=== PATIENT | male | born 1960 | race Caucasian/White ===

== ENCOUNTER 2020-12-09 12:47 | Emergency (ER) | payer OTHER, SELFPAY ==
[2020-12-09 12:57] VITALS: BP 142/81; PULSE 71; RESP 16; TEMP 36; O2SAT 99
[2020-12-09 13:03] VITALS: BP 142/81; PULSE 71; RESP 16; TEMP 36; O2SAT 99
--- NOTE | 2020-12-09 13:05 | ED.GENADULT ---
HPI - General Adult General Chief complaint: Eye Problems Stated complaint: eye irritation Source: patient Mode of arrival: ambulatory Limitations: no limitations History of Present Illness HPI narrative: Patient is a 60-year-old male who presents to the urgent care via POV for an evaluation of a right eye problem that began 4 days ago. Right upper eyelid is erythematous and tender. Additionally, he reports no relief with OTC eye ointment . Blinking and touching affected area increases tenderness. Related Data Home Medications Medication Instructions Recorded Confirmed ergocalciferol (vitamin D2) 12/09/20 hydrochlorothiazide 12/09/20 lisinopril 12/09/20 pyridoxine (vitamin B6) 12/09/20 rosuvastatin mg 12/09/20 sertraline mg 12/09/20 Allergies Allergy/AdvReac Type Severity Reaction Status Date / Time No Known Allergies Allergy Unverified 06/04/16 07:30 Review of Systems Review of Systems: Denies injury. Pertinent negatives fever, chills, sweats, malaise, poor p.o. intake, change in appetite, headache, LOC, dizziness, streaking, drainage, numbness, tingling, loss of sensation, foreign body sensation, deformity, sob, chest pain, and heart palpitations/murmurs. [facility] Past Medical History Medical History (Updated 12/09/20 @ 13:13 by ZAYDA Patrick, ) Depression Diabetes Hyperlipidemia Hypertension Exam Narrative: GENERAL: Well-appearing, well-nourished, and in no acute distress. HEAD: Normocephalic, atraumatic. No sinus tenderness or facial swelling appreciated. EYES: Mild swelling and erythema noted to right upper eyelid secondary to stye. Right lower eyelid and left eyelids are normal. PERRLA and EOMI. No evidence of drainage. Periorbital are is without erythema, swelling, pain, and warmth. Bilateral lashes are normal. Bilateral sclera are normal. Conjunctiva are with oral. ENT: Nares clear, no rhinorrhea or epistaxis. Bilateral turbinates without erythema/ swelling. Mucous membranes moist and pink. Uvula is midline without erythema and swelling. No evidence of petechial rash, cobblestoning, lesions, ulcers, erythema, swelling, exudates, peritonsillar abscess, tenting, or drooling. Breath odor and voice normal. NECK: Supple. No Lymphadenopathy or nuchal rigidity appreciated. CHEST: Bilateral lung saunders are clear to auscultation. No respiratory distress. No evidence of cough or pleuritic cp upon examination. HEART: Regular rate and rhythm. No murmur, gallop, or rub heard. EXTREMITIES: Normal range of motion. No edema. SKIN: Warm, dry, no rash. NEURO: No focal deficits. Alert and oriented x3. Course Vital Signs Vital signs: Vital Signs Temperature 96.8 F L 12/09/20 12:57 Pulse Rate 71 12/09/20 12:57 Respiratory Rate 16 12/09/20 12:57 Blood Pressure 142/81 H 12/09/20 12:57 Pulse Oximetry 99 12/09/20 12:57 Temperature 96.8 F L 12/09/20 13:03 Pulse Rate 71 12/09/20 13:03 Respiratory Rate 16 12/09/20 13:03 Blood Pressure 142/81 H 12/09/20 13:03 Pulse Oximetry 99 12/09/20 13:03 Due to an elevated blood pressure, I had a detailed discussion with the patient and/or guardian regarding the need for follow-up with their primary care provider within the next 3-4 days. Patient verbalized understanding and agreed. Medical Decision Making Differential Diagnosis Differential Diagnosis: Contact/allergic dermatitis, atopic dermatitis, psoriasis, cellulitis, tinea infection, parasite infection, shingles Medical Records Medical records reviewed: Yes I reviewed the external patient's medical records. Vital Signs Vital Signs: Vital Signs Temperature 96.8 F L 12/09/20 12:57 Pulse Rate 71 12/09/20 12:57 Respiratory Rate 16 12/09/20 12:57 Blood Pressure 142/81 H 12/09/20 12:57 Pulse Oximetry 99 12/09/20 12:57 Temperature 96.8 F L 12/09/20 13:03 Pulse Rate 71 12/09/20 13:03 Respiratory Rate 16 12/09/20 13:03 Blood Pressure 142/81
== END 2020-12-09 13:17 | disposition home or self-care (01) ==
PROVIDERS: Emergency Provider Nurse Practitioner Family
DX: H00.011 Hordeolum externum right upper eyelid (principal); F32.9 Major depressive disorder, single episode, unspecified; E11.9 Type 2 diabetes mellitus without complications; I10 Essential (primary) hypertension; E78.5 Hyperlipidemia, unspecified
CPT/HCPCS: 99203; G0463

== ENCOUNTER 2020-12-13 12:43 | Emergency (ER) | payer OTHER, SELFPAY ==
[2020-12-13 12:53] VITALS: BP 130/74; PULSE 78; RESP 16; TEMP 36.6; O2SAT 100
--- NOTE | 2020-12-13 13:06 | ED.SKABFB ---
HPI - Skin/Abscess/Foreign Bdy General Chief complaint: Skin/Abscess/Foreign Body Stated complaint: SPOT ON R THIGH Source: patient Mode of arrival: ambulatory Limitations: no limitations History of Present Illness HPI narrative: Patient is a 60-year-old male who presents with rash to groin area. He reports rash x2 to 3 days. Reports attempting to contact primary care physician and was not able to schedule appointment and patient directed to urgent care. He denies drainage. Denies pain at this time. Reports having same in the past and referral to dermatology. He denies using [id number] medications prior to arrival. MD complaint: rash Related Data Home Medications Medication Instructions Recorded Confirmed ergocalciferol (vitamin D2) 12/09/20 hydrochlorothiazide 12/09/20 lisinopril 12/09/20 pyridoxine (vitamin B6) 12/09/20 rosuvastatin mg 12/09/20 sertraline mg 12/09/20 Allergies Allergy/AdvReac Type Severity Reaction Status Date / Time No Known Allergies Allergy Unverified 12/13/20 12:47 Review of Systems Review of Systems: CONSTITUTIONAL: Denies fever, chills, or sweats. EYES: Denies visual changes, redness, or discharge. ENT: Denies rhinorrhea, congestion, sore throat, or otalgia. CARDIOVASCULAR: Denies chest pain, palpitations, or edema. RESPIRATORY: Denies cough or dyspnea. GASTROINTESTINAL: Denies abdominal pain, nausea, vomiting, or diarrhea. GENITOURINARY: Denies dysuria or hematuria. SKIN: Rash to groin and upper thighs MUSCULOSKELETAL: Denies back pain, joint pain, or myalgia. NEUROLOGIC: Denies headache, numbness, dizziness, or weakness. PSYCHIATRIC: Denies anxiety or depression. [facility] Past Medical History Medical History Depression Diabetes Hyperlipidemia Hypertension Social History Social History (Updated 12/13/20 @ 13:07 by ZAYDA Mckeon) Smoking status: Never smoker Alcohol intake: current Alcohol use details: Occasional Substance use: never Comments At the time of signature, I have reviewed and agree with nursing past medical, surgical, social, and family history unless otherwise noted. Please see nursing chart for further information. There is no relevant family history pertinent to the presenting complaint. Exam Narrative: GENERAL: Well-appearing, well-nourished, and in no acute distress. HEAD: Normocephalic, atraumatic. EYES: EOMI. No redness or drainage. Conjunctiva are normal. ENT: Mucous membranes pink and moist. CHEST: No respiratory distress. Clear to auscultation. HEART: Regular rate and rhythm. EXTREMITIES: Normal range of motion. No edema. SKIN: Patient has erythematous areas on the proximal medial thigh bilaterally, approximate 1 cm open wound noted on right thigh without surrounding erythema or edema NEURO: No focal deficits. Alert and oriented x3. Gait steady. PSYCH: Normal affect. No signs of depression or anxiety. Course Vital Signs Vital signs: Vital Signs Temperature 36.6 C 12/13/20 12:53 Pulse Rate 78 12/13/20 12:53 Respiratory Rate 16 12/13/20 12:53 Blood Pressure 130/74 12/13/20 12:53 Pulse Oximetry 100 12/13/20 12:53 Temperature 36.6 C 12/13/20 12:53 Pulse Rate 78 12/13/20 12:53 Respiratory Rate 16 12/13/20 12:53 Blood Pressure 130/74 12/13/20 12:53 Pulse Oximetry 100 12/13/20 12:53 At the time of signature, I have reviewed and agree with nursing past medical, surgical, social, and family history unless otherwise noted. Please see nursing chart for further information. There is no relevant family history pertinent to the presenting complaint. MDM - Skin/Abscess/Foreign Bdy Differential Diagnosis Differential diagnosis: Likely abscess of skin or subcutaneous tissue, viral exanthem, dermatophytosis, urticaria, allergic reaction to drug, cellulitis and other (Tinea cruris) Critical Care Time Critical Care Time Critical
== END 2020-12-13 13:12 | disposition home or self-care (01) ==
PROVIDERS: Emergency Provider Nurse Practitioner
DX: B35.6 Tinea cruris (principal); F32.9 Major depressive disorder, single episode, unspecified; E78.5 Hyperlipidemia, unspecified; I10 Essential (primary) hypertension
CPT/HCPCS: 99213; G0463

== ENCOUNTER 2021-10-18 14:19 | Emergency (ER) | payer BC, SELFPAY ==
[2021-10-18 15:03] VITALS: BP 117/84; PULSE 81; RESP 16; TEMP 37.1; O2SAT 100
--- NOTE | 2021-10-18 15:51 | ED.SKABFB ---
HPI - Skin/Abscess/Foreign Bdy General Chief complaint: Skin/Abscess/Foreign Body Stated complaint: spot on inside of left thigh Time Seen by Provider: 10/18/21 15:51 Source: patient, RN notes reviewed and old records reviewed Mode of arrival: ambulatory Limitations: no limitations History of Present Illness HPI narrative: 60 year old male with complaints of possible abscess to the left inner thigh which did drain some purulent material and blood this morning. Patient reports area has been there for 4 days and now with increasing redness and tenderness over the last 24 hours area measures 6 cm x 8 cm. Patient also has a red rash area in the groin bilaterally states that he has this intermittent yeast rash that he has special cream he uses on that. Patient reports that he has had several abscesses in the past.Patient denies any fevers, chills or sweats. MD complaint: abscess/boil Onset (ago): day(s) (4) Location: LLE (inner thigh) Severity scale (1-10): 2 Related Data Home Medications Medication Instructions Recorded Confirmed ergocalciferol (vitamin D2) 1,250 12/09/20 mcg (50,000 unit) capsule hydrochlorothiazide 12.5 mg capsule 12/09/20 lisinopril 10 mg tablet 12/09/20 pyridoxine (vitamin B6) 100 mg 12/09/20 tablet rosuvastatin 5 mg tablet mg 12/09/20 sertraline 100 mg tablet mg 12/09/20 Allergies Allergy/AdvReac Type Severity Reaction Status Date / Time No Known Allergies Allergy Verified 10/18/21 15:01 Review of Systems Review of Systems: CONSTITUTIONAL: Denies fever, chills, or sweats. EYES: Denies visual changes, redness, or discharge. ENT: Denies rhinorrhea, congestion, sore throat, or otalgia. CARDIOVASCULAR: Denies chest pain, palpitations, or edema. RESPIRATORY: Denies cough or dyspnea. GASTROINTESTINAL: Denies abdominal pain, nausea, vomiting, or diarrhea. GENITOURINARY: Denies dysuria or hematuria. SKIN: Denies rash or itching. Positive for red inflamed tissue to inner left thigh with center scab tender to palpation MUSCULOSKELETAL: Denies back pain, joint pain, or myalgia. NEUROLOGIC: Denies headache, numbness, or weakness. PSYCHIATRIC: Positive history of anxiety or depression. All systems reviewed & are unremarkable except as noted in HPI and below PMFSH Past Medical History Medical History Depression Diabetes Hyperlipidemia Hypertension Surgical History Surgical History (Updated 10/18/21 @ 22:56 by Maryanne Patricia NP) History of bilateral carpal tunnel release Social History Social History (Updated 10/18/21 @ 22:52 by Maryanne Patricia NP) Smoking status: Never smoker Alcohol intake: current Alcohol use details: Occasional Substance use: never Living arrangements: with family Gender identity (if verbalized by the patient): Male Comments At time of signature agree with nursing documentation of past medical surgical, social and family history. there is no relevant family history pertinent to presenting complaint. Exam Narrative: GENERAL: Well-appearing, well-nourished, and in no acute distress. HEAD: Normocephalic, atraumatic. EYES: PERRLA and EOMI. ENT: Nares clear, no rhinorrhea or epistaxis. Mucous membranes moist.TM's normal, throat pink with no lesions or exudates or tonsil swelling NECK: Supple. No lymphadenopathy CHEST: Clear to auscultation. No respiratory distress. SaO2 100% on room air HEART: Regular rate and rhythm. No murmur heard. Normal peripheral pulses. ABDOMEN: Soft, nontender, nondistended, normal active bowel sounds. EXTREMITIES: Normal range of motion. No edema. SKIN: Warm, dry, no rash. 6 cm x 8 cm red inflamed tissue left upper inner thigh with center pustule with scabbing no present drainage, tenderness on palpation, no induration of tissue. NEURO: No focal deficits. Alert and oriented x3. Course Course Level of Care: Express Care Visit Vital Signs Vital signs: Vital
== END 2021-10-18 16:15 | disposition home or self-care (01) ==
PROVIDERS: Emergency Provider Registered Nurse
DX: L02.416 Cutaneous abscess of left lower limb (principal); E11.9 Type 2 diabetes mellitus without complications; E78.5 Hyperlipidemia, unspecified; I10 Essential (primary) hypertension; F32.A Depression, unspecified
CPT/HCPCS: 99213; G0463

== ENCOUNTER 2022-07-06 11:16 | Emergency (ER) | payer BC, SELFPAY ==
[2022-07-06 11:27] VITALS: BP 105/74; PULSE 78; RESP 16; TEMP 36.7; O2SAT 99
[2022-07-06 11:33] VITALS: BP 105/74; PULSE 78; RESP 16; TEMP 36.7; O2SAT 99
--- NOTE | 2022-07-06 11:35 | ED.URI ---
HPI - URI/Sore Throat General Chief Complaint: Upper Respiratory Infection Stated Complaint: sore throat, congestion Source: patient and RN notes reviewed History of Present Illness HPI Narrative: 61 yo M presents to urgent care with complaints of worsening congestion and sore throat. Pt states his upper teeth are hurting now. Pt reports head pressure, ear pain, and slight cough. States he has been using all the OTC meds without relief. Pt states his symptoms became much worse yesterday. Denies any fevers, chills, chest pain, SOB, and vomiting. Related Data Home Medications Medication Instructions Recorded Confirmed ergocalciferol (vitamin D2) 1,250 1,250 mcg PO DAILY 12/09/20 07/06/22 mcg (50,000 unit) capsule hydrochlorothiazide 12.5 mg capsule 12.5 mg PO DAILY 12/09/20 07/06/22 lisinopril 10 mg tablet 10 mg PO DAILY 12/09/20 07/06/22 pyridoxine (vitamin B6) 100 mg 100 mg PO DAILY 12/09/20 07/06/22 tablet rosuvastatin 5 mg tablet 5 mg PO DAILY 12/09/20 07/06/22 sertraline 100 mg tablet 100 mg PO DAILY 12/09/20 07/06/22 Allergies Allergy/AdvReac Type Severity Reaction Status Date / Time No Known Allergies Allergy Verified 07/06/22 11:27 Review of Systems Review of Systems: Pertinent positives and pertinent negatives per HPI. [facility] Past Medical History Medical History (Updated 07/06/22 @ 11:41 by Evangelina Cordoba APRN) Depression Diabetes Hyperlipidemia Hypertension Surgical History Surgical History (Updated 10/18/21 @ 22:56 by Maryanne Patricia NP) History of bilateral carpal tunnel release Social History Social History (Updated 10/18/21 @ 22:52 by Maryanne Patricia NP) Smoking status: Never smoker Alcohol intake: current Alcohol use details: Occasional Substance use: never Living arrangements: with family Gender identity (if verbalized by the patient): Male Comments At the time of my signature, I reviewed and agree with the nursing past medical, surgical, social, and family history. There is no relevant family history pertinent to the patient complaint. Exam Narrative: GENERAL: This is a well-nourished, well-developed patient, in no apparent distress. HEAD: normocephalic, atraumatic. EYES: PERRL. Sclera clear/white. Vision is grossly intact. EARS: External ears normal, auditory canals clear and without drainage, TMs normal without perforation. Hearing grossly intact. NOSE: External nose normal with no obvious nasal discharge, nares without redness, no rhinorrhea. THROAT: Mucous membranes moist, posterior pharynx clear. NECK: Neck supple, non-tender without lymphadenopathy, masses or thyromegaly. CARDIOVASCULAR: Regular rate and rhythm without murmurs, gallops, or rubs. RESPIRATORY: Clear to auscultation. Breath sounds equal bilaterally. No wheezes, rales, or rhonchi. GASTROINTESTINAL: Abdomen soft, non-tender, nondistended. Bowel sounds are active. No hepato-splenomegaly, or palpable masses. No guarding. SKIN: warm, intact with no suspicious lesions or rash, good texture and turgor. NEURO: awake, alert, and oriented to person, place and time. There were no obvious focal neurologic abnormalities. EXTREMITIES: No clubbing, cyanosis, or edema. No joint tenderness, effusion, or edema noted. BACK: Nontender without deformity or crepitance. No flank tenderness. Course Course Level of Care: Express Care Visit Vital Signs Vital signs: Vital Signs Temperature 98.1 F 07/06/22 11:27 Pulse Rate 78 07/06/22 11:27 Respiratory Rate 16 07/06/22 11:27 Blood Pressure 105/74 07/06/22 11:27 Pulse Oximetry 99 07/06/22 11:27 Temperature 98.1 F 07/06/22 11:33 Pulse Rate 78 07/06/22 11:33 Respiratory Rate 16 07/06/22 11:33 Blood Pressure 105/74 07/06/22 11:33 Pulse Oximetry 99 07/06/22 11:33 Reviewed MDM - URI/Sore Throat MDM Narrative Medical decision making narrative: Return to urgent care or go to the ER for new or worsening symptoms.
== END 2022-07-06 11:50 | disposition home or self-care (01) ==
PROVIDERS: Emergency Provider Nurse Practitioner Family
DX: J01.90 Acute sinusitis, unspecified (principal); E11.9 Type 2 diabetes mellitus without complications; E78.5 Hyperlipidemia, unspecified; I10 Essential (primary) hypertension; F32.A Depression, unspecified
CPT/HCPCS: 87081; 87880; 99213; G0463

== ENCOUNTER 2022-11-27 11:07 | Emergency (ER) | payer BC, SELFPAY ==
--- NOTE | 2022-11-27 11:20 | ED.URI ---
HPI - URI/Sore Throat General Chief Complaint: Upper Respiratory Infection Stated Complaint: Sinus infection Time Seen by Provider: 11/27/22 11:25 Source: patient and RN notes reviewed Mode of arrival: ambulatory Limitations: no limitations History of Present Illness HPI Narrative: 8-year-old male presents with concern for 3 day history of sinus pain, postnasal drainage, sneezing, throat irritation. He reports feeling feverish. He denies body aches. Denies cough MD elicited complaint: nasal congestion and sinus pain Related Data Home Medications Medication Instructions Recorded Confirmed ergocalciferol (vitamin D2) 1,250 1,250 mcg PO DAILY 12/09/20 11/27/22 mcg (50,000 unit) capsule hydrochlorothiazide 12.5 mg capsule 12.5 mg PO DAILY 12/09/20 11/27/22 lisinopril 10 mg tablet 10 mg PO DAILY 12/09/20 11/27/22 pyridoxine (vitamin B6) 100 mg 100 mg PO DAILY 12/09/20 11/27/22 tablet rosuvastatin 5 mg tablet 5 mg PO DAILY 12/09/20 11/27/22 sertraline 100 mg tablet 100 mg PO DAILY 12/09/20 11/27/22 Allergies Allergy/AdvReac Type Severity Reaction Status Date / Time No Known Allergies Allergy Verified 07/06/22 11:27 Review of Systems Review of Systems: CONSTITUTIONAL: Denies malaise, chills, sweats, or fever. EYES: Denies visual changes, redness, or discharge. ENT: Reports rhinorrhea, congestion, sinus pain. Denies otalgia and sore throat. CARDIOVASCULAR: Denies chest pain, palpitations, or edema. RESPIRATORY: Denies cough. Denies dyspnea. GASTROINTESTINAL: Denies abdominal pain, nausea, vomiting, diarrhea SKIN: Denies rash or itching. MUSCULOSKELETAL: Denies myalgia. NEUROLOGIC: Denies headache. All systems reviewed & are unremarkable except as noted in HPI and below PMFSH Past Medical History Medical History (Updated 11/27/22 @ 11:49 by Kaley Pelayo NP) Depression Diabetes Hyperlipidemia Hypertension Surgical History Surgical History (Updated 10/18/21 @ 22:56 by Maryanne Patricia NP) History of bilateral carpal tunnel release Social History Social History (Updated 10/18/21 @ 22:52 by Maryanne Patricia NP) Smoking status: Never smoker Alcohol intake: current Alcohol use details: Occasional Substance use: never Living arrangements: with family Gender identity (if verbalized by the patient): Male Comments At time of signature, agree with nursing past medical, surgical, social and family history. There is no relevant family history pertinent to the presenting complaint Exam Narrative: GENERAL: Well-appearing, well-nourished, and in no acute distress. HEAD: Normocephalic EYES: PERRLA, conjunctivae clear ENT: Nares clear, turbinates edematous and erythematous, clear discharge. Mucous membranes moist. TM pearly wei with dull light reflex bilaterally; no tragal tenderness. Oropharynx not erythematous without lesions. Tonsils not enlarged and without exudate, no drooling, no hoarseness, no trismus, uvula midline. NECK: Supple. No lymphadenopathy CHEST: Clear to auscultation, breath sounds equal. No wheezing, rhonchi, rales, or stridor. No respiratory distress, speaks in full sentences. HEART: Regular rate and rhythm. No murmur heard. SKIN: Warm, dry, no rash. NEURO: Alert and oriented x3. PSYCH: Normal mood and affect Course Course Emergency Course: Patient is aware of diagnosis, understands and agrees to treatment plan. Anticipatory guidance given. Patient agrees to follow-up as directed and is aware of reasons to seek care at the emergency department. Portions of this record may have been created with voice recognition software Level of Care: Express Care Visit Vital Signs Vital signs: Reviewed. MDM - URI/Sore Throat MDM Narrative Medical decision making narrative: Differential diagnosis considered: Key virus, strep pharyngitis, allergic rhinitis, upper respiratory tract infection, sinusitis, rhinosinusitis, nasopharyngitis. viral pharyngitis, otitis medi
[2022-11-27 11:26] VITALS: BP 134/81; PULSE 85; RESP 16; TEMP 36.6; O2SAT 98
== END 2022-11-27 11:53 | disposition home or self-care (01) ==
PROVIDERS: Emergency Provider Nurse Practitioner
DX: J06.9 Acute upper respiratory infection, unspecified (principal); E11.9 Type 2 diabetes mellitus without complications; E78.5 Hyperlipidemia, unspecified; I10 Essential (primary) hypertension; F32.A Depression, unspecified
CPT/HCPCS: 99213; G0463

== ENCOUNTER 2023-04-28 12:23 | Emergency (ER) | payer BC, SELFPAY ==
[2023-04-28 12:31] VITALS: BP 125/78; PULSE 75; RESP 16; TEMP 36.4; O2SAT 99
--- NOTE | 2023-04-28 12:43 | ED.SKABFB ---
HPI - Skin/Abscess/Foreign Bdy General Chief complaint: Skin/Abscess/Foreign Body Stated complaint: SPOT ON STOMACH Time Seen by Provider: 04/28/23 12:37 Source: patient and RN notes reviewed Mode of arrival: ambulatory Limitations: no limitations History of Present Illness HPI narrative: This patient presents today complaining of a reddened area to the right lower abdomen that has been worsening for the past 4 days. He has tried to pop the area with some drainage resulting. Reports history 2-3 areas such as this in the past that were treated with Bactrim. States that he has never required an I&D Related Data Home Medications Medication Instructions Recorded Confirmed ergocalciferol (vitamin D2) 1,250 1,250 mcg PO DAILY 12/09/20 04/28/23 mcg (50,000 unit) capsule lisinopril 10 mg tablet 10 mg PO DAILY 12/09/20 04/28/23 pyridoxine (vitamin B6) 100 mg 100 mg PO DAILY 12/09/20 04/28/23 tablet rosuvastatin 5 mg tablet 5 mg PO DAILY 12/09/20 04/28/23 sertraline 100 mg tablet 100 mg PO DAILY 12/09/20 04/28/23 Allergies Allergy/AdvReac Type Severity Reaction Status Date / Time No Known Allergies Allergy Verified 04/28/23 12:37 Review of Systems Review of Systems: CONSTITUTIONAL: Denies body aches, fever, chills, or sweats. EYES: Denies visual changes, redness, or discharge. ENT: Denies rhinorrhea, congestion, sore throat, or otalgia. CARDIOVASCULAR: Denies chest pain, palpitations, or edema. RESPIRATORY: Denies cough or dyspnea. GASTROINTESTINAL: Denies abdominal pain, nausea, vomiting, or diarrhea. GENITOURINARY: Denies dysuria or hematuria. SKIN: +abscess to abdomen MUSCULOSKELETAL: Denies back pain, joint pain, or myalgia. NEUROLOGIC: Denies headache, numbness, tingling, or weakness. PSYCH: Denies depression or anxiety. [facility] Past Medical History Medical History (Updated 04/28/23 @ 12:59 by Lucila Osullivan, F[employer]IT[employer]CH[employer]IC, ) Depression Diabetes Hyperlipidemia Hypertension Surgical History Surgical History (Updated 10/18/21 @ 22:56 by Maryanne Patricia NP) History of bilateral carpal tunnel release Social History Social History (Updated 10/18/21 @ 22:52 by Maryanne Patricia NP) Smoking status: Never smoker Alcohol intake: current Alcohol use details: Occasional Substance use: never Living arrangements: with family Gender identity (if verbalized by the patient): Male Comments At time of signature, I have reviewed and agree with nursing past medical, surgical, social and family history unless otherwise noted. Please see nursing chart for further information. There is no relevant family history pertinent to the presenting complaint Exam Narrative: GENERAL: Well-appearing, well-nourished, and in no acute distress. HEAD: Normocephalic, atraumatic. EYES: EOMI. No redness or drainage. Conjunctivae normal. ENT: Mucous membranes pink and moist. NECK: Normal AROM. Supple. No lymphadenopathy. CHEST: No respiratory distress. Clear to auscultation. HEART: Regular rate and rhythm. No murmur appreciated. EXTREMITIES: Normal range of motion. No edema. SKIN: Warm, dry, no rash. Capillary refill normal. Normal skin turgor. 8x5cm area of erythema to the right lower abdomen with 1cm round area of fluctuance in the center. No active bleeding. NEURO: No focal deficits. Alert and oriented x3. Gait steady. PSYCH: Normal affect. No signs of depression or anxiety. Course Course Level of Care: Express Care Visit Vital Signs Vital signs: Vital Signs Temperature 97.6 F 04/28/23 12:31 Pulse Rate 75 04/28/23 12:31 Respiratory Rate 16 04/28/23 12:31 Blood Pressure 125/78 04/28/23 12:31 Pulse Oximetry 99 04/28/23 12:31 Temperature 97.6 F 04/28/23 12:31 Pulse Rate 75 04/28/23 12:31 Respiratory Rate 16 04/28/23 12:31 Blood Pressure 125/78 04/28/23 12:31 Pulse Oximetry 99 04/28/23 12:31 Oxygen Delivery Room Air 04/28/23 12:32 Reviewed Pr
[2023-04-28] MEDS: LIDO 1%/EPINEPHRINE 1:100,000 20 ML VIAL 10 ML INFILTRATE (12:44)
--- NOTE | 2023-04-28 13:10 | PC.NURSE ---
PT TOLERATED I&D WELL. PERFORMED PER SENIOR NET DEVELOPER.
== END 2023-04-28 13:05 | disposition home or self-care (01) ==
PROVIDERS: Emergency Provider Nurse Practitioner
DX: L02.211 Cutaneous abscess of abdominal wall (principal); E11.9 Type 2 diabetes mellitus without complications; E78.5 Hyperlipidemia, unspecified; I10 Essential (primary) hypertension; F32.A Depression, unspecified
CPT/HCPCS: 10060; 99213; G0463

== ENCOUNTER 2023-09-09 15:45 | Emergency (ER) | payer BC, SELFPAY ==
[2023-09-09] VITALS (20 sets, daily range): BP systolic 124–156; BP diastolic 74–96; PULSE 72–82; RESP 14–23; TEMP 36.8; O2SAT 94–99
--- NOTE | 2023-09-09 15:58 | PC.NURSE ---
Pt taking ozempic for two years, two weeks ago his dosage was increased from 1 to 2 and added jardiance. patient states that since started diarrhea has been common but has increased significantly with this last dose increase. patient states that for four days he has had liquid watery brown stool with no form at all just water water with brown tinge patient taking ozempic for type 2 diabetes. patient denies muscle cramps, denies any change in urination, denies headache, denies chest pain. patient just concerned that he is getting dehydrated because once he drinks he goes to the bathroom right after.
--- NOTE | 2023-09-09 16:05 | ED.NAVMDI ---
HPI - Nausea/Vomiting/Diarrhea General Chief complaint: Nausea/Vomiting/Diarrhea Stated complaint: diarrhea Time Seen by Provider: 09/09/23 15:58 Source: patient Mode of arrival: ambulatory Limitations: no limitations History of Present Illness HPI Narrative: Patient has had 4 days of diarrhea. He estimates 12 nonbloody stools in the past day. Some associated nausea but no vomiting. This has never happened before. Lives with and 2 children who are not sick. There was reportedly abdominal pain from triage note but He denies any abdominal pain. His Ozempic dosage was recently increased approximately 2-3 weeks ago, from 1 to 2. Around this time, Jardiance was also added daily. He called his PCP Dr Manuel Hamm's office and they recommended he back down on his Ozempic, going back to 1. No syncope. Does not see an personnel records clerk. Never been in DKA. No recent antibiotics Related Data Home Medications Medication Instructions Recorded Confirmed ergocalciferol (vitamin D2) 1,250 1,250 mcg PO DAILY 12/09/20 04/28/23 mcg (50,000 unit) capsule lisinopril 10 mg tablet 10 mg PO DAILY 12/09/20 04/28/23 pyridoxine (vitamin B6) 100 mg 100 mg PO DAILY 12/09/20 04/28/23 tablet rosuvastatin 5 mg tablet 5 mg PO DAILY 12/09/20 04/28/23 sertraline 100 mg tablet 100 mg PO DAILY 12/09/20 04/28/23 Allergies Allergy/AdvReac Type Severity Reaction Status Date / Time No Known Allergies Allergy Verified 04/28/23 12:37 [facility] Past Medical History Medical History (Updated 09/10/23 @ 00:00 by Kvng Esquivel) Depression Diabetes Hyperlipidemia Hypertension Surgical History Surgical History (Updated 10/18/21 @ 22:56 by Maryanne Patricia NP) History of bilateral carpal tunnel release Social History Social History (Updated 09/11/23 @ 09:01 by Rosemarie Baird MD) Smoking status: Never smoker Alcohol intake: current Alcohol use details: Occasional Substance use: never Living arrangements: with family Additional living arrangements comments: and 2 children Gender identity (if verbalized by the patient): Male Exam Narrative: GENERAL: Well-appearing, well-nourished, and in no acute distress. HEAD: Normocephalic, atraumatic. EYES: Non injected, non icteric ENT: Nares clear, no rhinorrhea or epistaxis. Tacky mucous membranes NECK: Supple. CHEST: Speaking in full sentences. No respiratory distress. HEART: Regular rate and rhythm. . ABDOMEN: Soft, nondistended. Non tender to palpation. No rigidity/guarding. EXTREMITIES: Normal range of motion. No edema. SKIN: Warm, dry, no rash. NEURO: No focal deficits. Alert and oriented x3. PSYCH: Normal mood and affect. Course Vital Signs Vital signs: Vital Signs Temperature 98.3 F 09/09/23 15:48 Pulse Rate 82 09/09/23 15:48 Respiratory Rate 18 09/09/23 15:48 Blood Pressure 156/96 H 09/09/23 15:48 Pulse Oximetry 99 09/09/23 15:48 Oxygen Delivery Room Air 09/09/23 15:48 Temperature 98.3 F 09/09/23 15:48 Pulse Rate 76 09/09/23 19:17 Respiratory Rate 19 09/09/23 19:17 Blood Pressure 144/83 H 09/09/23 19:17 Pulse Oximetry 99 09/09/23 19:03 Oxygen Delivery Room Air 09/09/23 15:48 MDM - Nausea/Vomiting/Diarrhea MDM Narrative Medical decision making narrative: Patient presents with 4 days of non bloody diarrhea. No associated abdominal pain. Recent diabetic and weight loss medication changes which I suspect this to be due to, or other benign etiologies. No abdominal pain so will defer imaging. In the ED he has VS notable for HTN. The differential for acute (<14d) diarrhea includes infectious etiologies (viral, preformed toxins, toxins formed after colonization, invasive bacteria, and parasites), medications, inflammatory causes (IBD, radiation enteritis, ischemic colitis, diverticulitis), malabsorption, secretory causes, or motility disorders. Considered euglycemic ketoacidosis secondary to SGLT2 inhibitor us
[2023-09-09 16:46] LABS: Basophils Percent Auto 0.3 % (0.2-1.2); Eosinophils Absolute Auto 0.3 K/mm3 (0-0.3); Eosinophils Percent Auto 2.9 % (0-4.4); Hematocrit 46.1 % (42.0-52.0); Hemoglobin 16.1 g/dL (14.0-18.0); Immature Granulocyte Absolute 0.05 K/mm3 (0.00-0.031); Immature Granulocyte Percent A 0.5 % (0-0.5); Lymphocytes Absolute Auto 1.63 K/mm3 (0.9-3.2); Lymphocytes Percent Auto 16.5 % (18.3-44.2); Mean Corpuscular HGB Conc 34.9 g/dl (32-36); Mean Corpuscular Hemoglobin 27.5 pg (26-34); Mean Corpuscular Volume 78.8 fl (80-100); Mean Platelet Volume 9.5 fl (7.4-10.4); Monocytes Absolute Auto 0.8 K/mm3 (0.1-0.6); Monocytes Percent Auto 7.7 % (2.6-8.5); Neutrophils Absolute Auto 7.1 K/mm3 (1.3-6.7); Neutrophils Percent Auto 72.1 % (45.5-73.1); Platelet Count Result 212 k/mm3 (150-375); Red Blood Count 5.85 M/mm3 (4.6-6.20); Red Cell Distribution Width 13.9 % (11.5-14.5); White Blood Count 9.9 K/mm3 (4.5-10.0)
[2023-09-09 16:53] LABS: Appearance Urine Clear (Clear); Bacteria Urine None Seen /hpf; Bilirubin Urine Negative (Negative); Blood Urine Negative (Negative); Color Urine Yellow (Yellow); Glucose Urine UA 3+ mg/dL (Negative); Ketones Urine Negative (Negative); Leukocyte Esterase Ur Negative LEU/UL (Negative); Nitrate Urine Negative (Negative); Non Pathogenic Casts 0-2; Protein Urine Trace mg/dL (Negative); RBC Urine 0-2 /hpf (0-2); Squamous Epithelial Cell Urine None Seen /hpf (Few); Urobilinogen Urine 0.2 mg/dL (<2.0); WBC Urine 0-5 /hpf (0-3)
[2023-09-09 16:54] LABS: Specific Grav Ur 1.045 (1.001-1.035)
[2023-09-09 16:55] LABS: Add Urine Microscopic? YES
[2023-09-09 16:56] LABS: Alanine Aminotransferase 39 U/L (6-50); Albumin Level 4.5 g/dL (3.5-5.1); Alkaline Phosphatase 124 U/L (38-126); Anion Gap 7 mmol/L (4-12); Aspartate Amino Transferase 36 U/L (17-59); Blood Urea Nitrogen 19 mg/dL (9-20); Calcium 9.2 mg/dL (8.4-10.2); Carbon Dioxide 28 mmol/L (22-30); Chloride 103 mmol/L (98-107); Estimated CRCL calculation 102 ml/min; Estimated Glomerular Filt Rate > 60; Glucose 179 mg/dL (65-110); Lipase 123 U/L (23-300); Magnesium 1.9 mg/dL (1.6-2.3); Potassium 3.3 mmol/L (3.4-5.0); Sodium 138 mmol/L (137-145)
[2023-09-09] MEDS: ONDANSETRON INJ 4 MG/2 ML VIAL IV PUSH (16:57)
[2023-09-09] MEDS: SODIUM CHLORIDE 0.9% IV 1,000 ML 999 ML IV CONT (16:57)
[2023-09-09 17:00] LABS: Influenza A QL RT-PCR Negative (Negative); Influenza B QL RT-PCR Negative (Negative); SARS-CoV-2 RNA PCR Negative (Negative)
[2023-09-09] MEDS: POTASSIUM BICARBONATE 25 MEQ TABEF 50 MEQ PO (18:32)
[2023-09-09 18:53] LABS: Toxigenic C. Diff NEGATIVE (NEGATIVE)
== END 2023-09-09 19:33 | disposition home or self-care (01) ==
PROVIDERS: Emergency Provider Student in an Organized Health Care Education/Training Program
DX: R19.7 Diarrhea, unspecified (principal); E87.6 Hypokalemia; E11.9 Type 2 diabetes mellitus without complications; Z20.822 Contact with and (suspected) exposure to COVID-19; I10 Essential (primary) hypertension; E78.5 Hyperlipidemia, unspecified; F32.A Depression, unspecified; Z79.899 Other long term (current) drug therapy; Z79.85 Long-term (current) use of injectable non-insulin antidiabetic drugs; Z79.84 Long term (current) use of oral hypoglycemic drugs
CPT/HCPCS: 36415; 80053; 81001; 83690; 83735; 85025; 87493; 87636; 96361; 96374; 99284; A9270; J2405; J7030

== ENCOUNTER 2023-12-15 14:45 | Emergency (ER) | payer BC, SELFPAY ==
[2023-12-15 14:59] VITALS: BP 143/77; PULSE 91; RESP 16; TEMP 36.8; O2SAT 98
[2023-12-15 15:15] LABS: EDSTREPNEGPOS1 Negative (Negative)
--- NOTE | 2023-12-15 15:23 | ED.URI ---
HPI - URI/Sore Throat General Chief Complaint: Upper Respiratory Infection Stated Complaint: Sore Throat Time Seen by Provider: 12/15/23 15:03 Source: patient, RN notes reviewed and old records reviewed Mode of arrival: ambulatory Limitations: no limitations History of Present Illness HPI Narrative: 63-year-old male to Express Care with complaint of sore throat, sinus pain and pressure, teeth hurting, nasal congestion, runny nose, subjective fever nonproductive since yesterday. Patient has attempted to treat at home with ibuprofen, Coricidin D, Mucinex without relief. patient denies difficulty swallowing, shortness of breath, nausea, vomiting, diarrhea, headache, ear pain, chest pain, allergies, pertinent medical history. Patient able to tolerate fluids by mouth. Patient resting in exam room uncomfortably, appears tired and acutely ill. Respirations even and nonlabored. Patient in no acute distress. Related Data Home Medications Medication Instructions Recorded Confirmed ergocalciferol (vitamin D2) 1,250 1,250 mcg PO DAILY 12/09/20 12/15/23 mcg (50,000 unit) capsule lisinopril 10 mg tablet 10 mg PO DAILY 12/09/20 12/15/23 rosuvastatin 5 mg tablet 5 mg PO DAILY 12/09/20 12/15/23 sertraline 100 mg tablet 100 mg PO DAILY 12/09/20 12/15/23 Allergies Allergy/AdvReac Type Severity Reaction Status Date / Time No Known Allergies Allergy Verified 12/15/23 14:52 Review of Systems Review of Systems: All systems reviewed & are unremarkable except as noted in HPI and below Constitutional: Constitutional: Reports as per HPI and Reports fever(s) ( Subjective) Eyes: Eyes: Reports no additional eye complaints ENT: Reports as per HPI, Reports nasal congestion, Reports nasal discharge, Reports sinus pain, Reports sinus pressure and Reports sore throat Cardiovascular: Cardiovascular: Reports no additional cardiovascular complaints, Denies chest pain and Denies dyspnea Respiratory: Respiratory: Reports no additional respiratory complaints, Reports cough and Denies dyspnea Musculoskeletal: Musculoskeletal: Reports no additional musculoskeletal complaints Neurologic: Reports system reviewed and no additional complaints, except as documented Psychiatric: Psychiatric: Reports no additional psychiatric complaints PMFSH Past Medical History Medical History Depression Diabetes Hyperlipidemia Hypertension Surgical History Surgical History History of bilateral carpal tunnel release Social History Social History Smoking status: Never smoker Alcohol intake: current Alcohol use details: Occasional Substance use: never Living arrangements: with family Additional living arrangements comments: and 2 children Gender identity (if verbalized by the patient): Male Comments At the time of my signature, I reviewed and agree with the nursing past medical, surgical, social, and family history. There is no relevant family history pertinent to the patient complaint. Exam Const: General: cooperative, no acute distress, alert, ill appearing acutely, tired appearing, uncomfortable and well nourished Nutritional Appearance: well nourished Orientation/consciousness: patient oriented x3 Limitations: no limitations HENMT: Head: normal to inspection Ears: external ears normal and TM abnormal with fluid behind the TM bilateral and diffuse Face/Nose/Sinus: Normal external nose present, Abnormal mucous membranes and turbinates present boggy and erythematous, normal facial exam, No erythema and No edema Face and sinus: normal facial exam, no erythema and no edema Mouth: Yes Normal oral and palatal mucosa present Throat: posterior oropharynx abnormal erythema and postnasal drainage Eyes: General: appearance normal, both eyes and all related structure
[2023-12-15 19:12] LABS: EDCOVIDSCREEN Negative (Negative)
== END 2023-12-15 15:19 | disposition home or self-care (01) ==
PROVIDERS: Emergency Provider Nurse Practitioner Family
DX: J32.9 Chronic sinusitis, unspecified (principal); B96.89 Other specified bacterial agents as the cause of diseases classified elsewhere; E11.9 Type 2 diabetes mellitus without complications; E78.5 Hyperlipidemia, unspecified; I10 Essential (primary) hypertension; F32.A Depression, unspecified; Z20.822 Contact with and (suspected) exposure to COVID-19
CPT/HCPCS: 87081; 87635; 87880; 99213; G0463

== ENCOUNTER 2023-12-24 08:54 | Outpatient (CLI) | payer BC, SELFPAY ==
--- NOTE | ~2023-12-24 | XR_ITS ---
EXAMINATION: XR chest 2V DATE: 12/24/2023 09:14 INDICATION: Wheezing. TECHNIQUE: Frontal and lateral views of the chest were obtained. COMPARISON: None. FINDINGS: There is no pneumonia, pleural effusion, or pneumothorax. The heart size is normal. IMPRESSION: 1. No acute cardiopulmonary disease. Reviewed, dictated and finalized at location A.
== END 2023-12-24 08:55 | disposition home or self-care (01) ==
DX: R05.2 Subacute cough (principal); R06.2 Wheezing
CPT/HCPCS: 71046

== ENCOUNTER 2024-02-12 15:29 | Emergency (ER) | payer BC, SELFPAY ==
[2024-02-12 15:36] VITALS: BP 115/74; PULSE 77; RESP 16; TEMP 36.4; O2SAT 100
--- NOTE | 2024-02-12 15:59 | ED.URI ---
HPI - URI/Sore Throat General Chief Complaint: Upper Respiratory Infection Stated Complaint: Sinus Infection Symptoms Time Seen by Provider: 02/12/24 15:50 Source: patient, RN notes reviewed and old records reviewed Mode of arrival: ambulatory Limitations: no limitations History of Present Illness HPI Narrative: 63 year old male who presents to [facility] care with 1 week duration of facial pressure, nasal congestion and drainage, and cough. Patient reports that cough is worse at night, does have history of sinus infections in the past with similar symptoms.Patient reports that he was treated in early December for sinus infection. Patient reports that he has not noted any chills or sweats or fevers, has been taking Coricidin decongestant. MD elicited complaint: cough, rhinorrhea, nasal congestion and sinus pain Pertinent past history: sinusitis Onset (ago): week(s) (1) Severity: moderate Pain scale (0-10): 4 Description of mucous: yellow Able to tolerate fluids by mouth: Yes Treatments prior to arrival: other (Coricidin) Related Data Home Medications Medication Instructions Recorded Confirmed ergocalciferol (vitamin D2) 1,250 1,250 mcg PO DAILY 12/09/20 02/12/24 mcg (50,000 unit) capsule hydrochlorothiazide 12.5 mg capsule 12.5 mg PO DAILY 02/12/24 02/12/24 lisinopril 20 mg tablet 20 mg PO DAILY 02/12/24 02/12/24 rosuvastatin 20 mg tablet 20 mg PO DAILY 02/12/24 02/12/24 semaglutide 1 mg/dose (4 mg/3 mL) 1 mg subcut WEEKLY 02/12/24 02/12/24 subcutaneous pen injector (Ozempic) sertraline 100 mg tablet 100 mg PO DAILY 02/12/24 02/12/24 triamcinolone acetonide 0.1 % 1 applic topical DIRECTED 02/12/24 02/12/24 topical cream Allergies Allergy/AdvReac Type Severity Reaction Status Date / Time No Known Allergies Allergy Verified 02/12/24 16:03 Review of Systems Review of Systems: CONSTITUTIONAL: Reports malaise, no chills, sweats, or fever. EYES: Denies visual changes, redness, or discharge. ENT: Reports rhinorrhea, congestion, sinus pain, no otalgia and no sore throat. CARDIOVASCULAR: Denies chest pain, palpitations, or edema. RESPIRATORY: Reports cough.? Denies dyspnea.increased cough at night GASTROINTESTINAL: Denies abdominal pain, nausea, vomiting, diarrhea SKIN: Denies rash or itching. MUSCULOSKELETAL: Denies myalgia. NEUROLOGIC: Denies acute headache. All systems reviewed & are unremarkable except as noted in HPI and below PMFSH Past Medical History Medical History Depression Diabetes Hyperlipidemia Hypertension Surgical History Surgical History History of bilateral carpal tunnel release Social History Social History Smoking status: Never smoker Alcohol intake: current Alcohol use details: Occasional Substance use: never Living arrangements: with family Additional living arrangements comments: and 2 children Gender identity (if verbalized by the patient): Male Comments At time of signature, agree with nursing past medical, surgical, social and family history. There is no relevant family history pertinent to the presenting complaint Exam Narrative: GENERAL: Well-appearing, well-nourished, and in no acute distress. HEAD: Normocephalic EYES: PERRLA, conjunctivae clear ENT: Nares clear, turbinates edematous and erythematous, clear to yellow tinged discharge.facial sinus pressure. Mucous membranes moist. TM pearly wei with dull light reflex bilaterally; no tragal tenderness. Oropharynx erythematous without lesions. Tonsils not enlarged and without exudate, no drooling, no hoarseness, no trismus, uvula midline.post nasal drainage NECK: Supple. No lymphadenopathy CHEST: Clear to auscultation, breath sounds equal. No wheezing, rhonchi, rales, or stridor. No respiratory distress, speaks in full sentences.dry cough SAO2 100% on room air HEART: Regular rate and rhythm. No murmur heard. SKIN: Warm, dry, no rash. NEURO: Alert and oriented x3. PSYCH: Normal mood and affect Course Course Emergency Course: Patient is aware of diagnosis, understands and agrees to treatment plan.? Anticipatory guidance given.? Patient agrees to follow-up as directed and is aware of reasons to seek care at the emergency department. Portions of this record may have been created with voice recognition software Level of Care: Express Care Visit Vital Signs Vital signs: Vital Signs Temperature 36.4 C 02/12/24 15:36 Pulse Rate 77 02/12/24 15:36 Respiratory Rate 16 02/12/24 15:36 Blood Pressure 115/74 02/12/24 15:36 Pulse Oximetry 100 02/12/24 15:36 Temperature 36.4 C 02/12/24 15:36 Pulse Rate 77 02/12/24 15:36 Respiratory Rate 16 02/12/24 15:36 Blood Pressure 115/74 02/12/24 15:36 Pulse Oximetry 100 02/12/24 15:36 Oxygen Delivery Room Air 02/12/24 15:45 Reviewed MDM - URI/Sore Throat MDM Narrative Medical decision making narrative: Differential diagnosis considered: Key virus, strep pharyngitis, allergic rhinitis, upper respiratory tract infection, sinusitis, rhinosinusitis, nasopharyngitis. viral pharyngitis, otitis media, otitis externa, pneumonia, bronchitis, viral cough syndrome, viral syndrome, and influenza.? Exam findings show no acute concerns or changes; patient is non-toxic appearing and is in no distress.? Patient is appropriate for outpatient treatment and follow-up. Differential Diagnosis Differential diagnosis: Likely upper respiratory infection, sinusitis, viral infection and other (cough) Medical Records Attestation: I reviewed the patient's medical records. Lab Data Attestation: I reviewed the patient's lab results. Critical Care Time Critical Care Time Critical Care Time: No Discharge Plan Discharge Clinical Impression: Sinusitis Patient Disposition: Home, Self-Care Condition: Stable Instructions: Antibiotic Form, Sinusitis (ED) Additional Instructions: Increase fluids especially juices and water [id number] cough and cold medicine of your choice for your symptoms Prescription cough medicine as directed--caution drowsiness and no driving or alcohol Zyrtec Claritin or Clarissa daily include Coricidin brand decongestant Tylenol or ibuprofen for any fever /pain heat to the face 20-30 minutes 4-6 times a day for pain Salt water gargles, throat lozenges or throat sprays as desired Antibiotic as directed--finished the medication If your symptoms persist, change or worsen significantly before you can contact your personal physician then please, without delay, go to the emergency department for further evaluation. Follow-up with PCP in 7-10 days or sooner if needed Prescriptions: New amoxicillin-pot clavulanate 875-125 mg tablet 1 tablet PO Q12H Qty: 20 0RF Rx Instructions: take probiotics or eat activity yogurt while on this medication make sure take this antibiotic with food codeine-guaifenesin 10-100 mg/5 mL liquid 10 ml PO Q6H PRN (Reason: cough) Qty: 120 0RF No Action ergocalciferol (vitamin D2) 1,250 mcg (50,000 unit) capsule 1,250 mcg PO DAILY lisinopril 20 mg tablet 20 mg PO DAILY sertraline 100 mg tablet 100 mg PO DAILY triamcinolone acetonide 0.1 % cream 1 applic TOPICAL DIRECTED hydrochlorothiazide 12.5 mg capsule 12.5 mg PO DAILY rosuvastatin 20 mg tablet 20 mg PO DAILY Ozempic 1 mg/dose (4 mg/3 mL) pen injector 1 mg SUBCUT WEEKLY Follow-up/Referrals: PHYSICIAN,TIMBER GIRDLER [Primary Care Provider] - Time of Disposition: 16:15 Quality Bow Coma Scale Eyes: Open Verbal: Oriented and Alert Motor: Follows Commands Pedro Coma Total Score: 15
== END 2024-02-12 16:19 | disposition home or self-care (01) ==
PROVIDERS: Emergency Provider Registered Nurse
DX: J32.9 Chronic sinusitis, unspecified (principal); E11.9 Type 2 diabetes mellitus without complications; I10 Essential (primary) hypertension; E78.5 Hyperlipidemia, unspecified; F32.A Depression, unspecified
CPT/HCPCS: 99213; G0463

== ENCOUNTER 2024-04-04 14:22 | Emergency (ER) | payer BC, SELFPAY ==
[2024-04-04 15:08] VITALS: BP 134/78; PULSE 65; RESP 16; TEMP 36.3; O2SAT 100
--- NOTE | 2024-04-04 15:25 | ED_ITS ---
HPI - Skin/Abscess/Foreign Bdy General Chief complaint: Skin/Abscess/Foreign Body Stated complaint: Skin/Abscess/Foreign Body Source: patient and RN notes reviewed Mode of arrival: ambulatory Limitations: no limitations History of Present Illness HPI narrative: 63 year old male who presents to [facility] care with complaints of abscess to the righ side of his abdomen. Patient reports that he has had similar episodes of skin abscess before. He reports that he has had this for the last 5 days with surrounding redness increasing in size. Patient reports no fevers, chills or sweats. Patient reports that he has not noted any drainage from area. He reports that he has applied warm compresses to area. MD complaint: abscess/boil Onset (ago): day(s) (5) Severity scale (1-10): 6 Treatments prior to arrival: other (warm compresses) Related Data Home Medications ?Medication ?Instructions ?Recorded ?Confirmed ?Last Taken ?Type ergocalciferol (vitamin D2) 1,250 1,250 mcg PO DAILY 12/09/20 02/12/24 Unknown History mcg (50,000 unit) capsule hydrochlorothiazide 12.5 mg capsule 12.5 mg PO DAILY 02/12/24 02/12/24 Unknown History lisinopril 20 mg tablet 20 mg PO DAILY 02/12/24 04/04/24 Unknown History rosuvastatin 20 mg tablet 20 mg PO DAILY 02/12/24 02/12/24 Unknown History semaglutide 1 mg/dose (4 mg/3 mL) 1 mg subcut WEEKLY 02/12/24 02/12/24 Unknown History subcutaneous pen injector (Ozempic) sertraline 100 mg tablet 100 mg PO DAILY 02/12/24 04/04/24 Unknown History triamcinolone acetonide 0.1 % 1 applic topical DIRECTED 02/12/24 02/12/24 Unknown History topical cream Allergies Allergy/AdvReac Type Severity Reaction Status Date / Time No Known Allergies Allergy Verified 04/04/24 18:44 Review of Systems Review of Systems: CONSTITUTIONAL: Denies fever, chills, or sweats. CARDIOVASCULAR: Denies chest pain, palpitations, or edema. RESPIRATORY: Denies cough or dyspnea. GASTROINTESTINAL: Denies abdominal pain, nausea, vomiting SKIN: Reports redness and swelling. abscess to right side of abdomen for past 5 days, no drainage noted surrounding redness of site resent MUSCULOSKELETAL: Denies myalgia. NEUROLOGIC: Denies headache, numbness All systems reviewed & are unremarkable except as noted in HPI and below PMFSH Past Medical History Medical History Depression Hyperlipidemia Hypertension Diabetes Surgical History Surgical History History of bilateral carpal tunnel release Social History Social History Smoking status: Never smoker Alcohol intake: current Alcohol use details: Occasional Substance use: never Living arrangements: with family Additional living arrangements comments: and 2 children Gender identity (if verbalized by the patient): Male Comments At time of signature, agree with nursing past medical, surgical, social and family history. There is no relevant family history pertinent to the presenting complaint Exam Narrative: GENERAL: Well-appearing, well-nourished, and in no acute distress. HEAD: Normocephalic, atraumatic. EYES: PERRLA and EOMI. ENT: Nares clear, no rhinorrhea or epistaxis. Mucous membranes moist. NECK: Supple. no lymphadenopathy CHEST: Clear to auscultation. No respiratory distress.SAO2 100% on room air HEART: Regular rate and rhythm. No murmur heard. Normal peripheral pulses. ABDOMEN: Soft, nontender, nondistended, normal active bowel sounds. EXTREMITIES: Normal range of motion. No edema. SKIN: Warm, dry. Erythema, induration, tenderness, warmth with center raised lesion noted to be [id number] with total surrounding redness 3cm X 2cm no drainage noted, no tissue necrosis noted. NEURO: No focal deficits. Alert and oriented x3. Course Course Emergency Course: Patient is aware of diagnosis, understands and agrees to treatment plan. Anticipatory guidance given. Patient agrees to follow-up as directed and is aware of reasons to seek care at the emergency department. Portions of this record may have been created with voice recognition software Level of Care: Express Care Visit Vital Signs Vital signs: Vital Signs Temperature 36.3 C L 04/04/24 15:08 Pulse Rate 65 04/04/24 15:08 Respiratory Rate 16 04/04/24 15:08 Blood Pressure 134/78 04/04/24 15:08 Pulse Oximetry 100 04/04/24 15:08 Temperature 36.3 C L 04/04/24 15:08 Pulse Rate 65 04/04/24 15:08 Respiratory Rate 16 04/04/24 15:08 Blood Pressure 134/78 04/04/24 15:08 Pulse Oximetry 100 04/04/24 15:08 Reviewed MDM - Skin/Abscess/Foreign Bdy MDM Narrative Medical decision making narrative: Does not appear at this time to be erythema multiforme, bullous, SJS, TEN; no evidence at this time to suggest RMSF, endocarditis or Lyme disease; patient looks well, nontoxic and is tolerating oral intake; no neurologic signs or symptoms; no headache, photophobia or neck pain; afebrile; appropriate for initial outpatient treatment; discussed the importance of follow-up, patient agrees. Patient does not have history of penetrating trauma, laceration, blunt trauma, recent surgery, immunosuppression, malignancy, obesity, alcoholism, corticosteroid use. Question cellulitis, necrotizing soft tissue infection, abscess. Differential Diagnosis Differential diagnosis: Likely abscess of skin or subcutaneous tissue, cellulitis, eczema and contact dermatitis Medical Records Attestation: I reviewed the patient's medical records. Critical Care Time Critical Care Time Critical Care Time: No Discharge Plan Discharge Clinical Impression: Abdominal wall abscess Patient Disposition: Home, Self-Care Condition: Stable Instructions: Antibiotic Form, Abscess (ED) Additional Instructions: cleanse with skin lesion twice daily with liquid Dial soap rinse apply mupirocin ointment warm compresses to site 3 times daily watch for any increasing infection--redness, swelling, drainage Tylenol or ibuprofen follow up with PCP in 7-10 days for a wound check recheck if develop fever, chills, increasing symptom Go to the ER if your symptoms become worse of if ANY new symptoms develop antibiotics as prescribed complete all doses cephalexin 3 times daily times 10 days If your symptoms persist, change or worsen significantly before you can contact your personal physician then please, without delay, go to the emergency department for further evaluation. Follow-up with PCP in 7-10 days or sooner if needed Follow up with PCP soon in regards to your blood pressure which is elevated above threshold for referral. Blood pressure above 120/80 may indicate pre- hypertension. 134/78 Patient Language: [place] Prescriptions: New cephalexin 500 mg capsule 500 mg PO Q8H Qty: 30 0RF mupirocin 2 % ointment 1 applic topical BID Qty: 22 0RF No Action ergocalciferol (vitamin D2) 1,250 mcg (50,000 unit) capsule 1,250 mcg PO DAILY lisinopril 20 mg tablet 20 mg PO DAILY sertraline 100 mg tablet 100 mg PO DAILY triamcinolone acetonide 0.1 % cream 1 applic TOPICAL DIRECTED hydrochlorothiazide 12.5 mg capsule 12.5 mg PO DAILY rosuvastatin 20 mg tablet 20 mg PO DAILY Ozempic 1 mg/dose (4 mg/3 mL) pen injector 1 mg SUBCUT WEEKLY codeine-guaifenesin 10-100 mg/5 mL liquid 10 ml PO Q6H PRN (Reason: cough) Qty: 120 0RF Follow-up/Referrals: Jorge,Manuel [Other] Time of Disposition: 15:36 Quality Pedro Coma Scale Eyes: Open Verbal: Oriented and Alert Motor: Follows Commands Henning Coma Total Score: 15
== END 2024-04-04 15:46 | disposition home or self-care (01) ==
PROVIDERS: Emergency Provider Registered Nurse
DX: L02.211 Cutaneous abscess of abdominal wall (principal); I10 Essential (primary) hypertension; E11.9 Type 2 diabetes mellitus without complications; E78.5 Hyperlipidemia, unspecified; F32.A Depression, unspecified
CPT/HCPCS: 99213; G0463

== ENCOUNTER 2024-06-28 17:58 | Emergency (ER) | payer BC, SELFPAY ==
[2024-06-28 18:08] VITALS: BP 146/84; PULSE 72; RESP 16; TEMP 36.4; O2SAT 100
[2024-06-28 18:38] LABS: EDSTREPNEGPOS1 Negative (Negative)
--- NOTE | 2024-06-28 18:40 | ED_ITS ---
HPI - URI/Sore Throat General Chief Complaint: Upper Respiratory Infection Stated Complaint: SORE THROAT/SINUS Time Seen by Provider: 06/28/24 18:29 Source: patient and RN notes reviewed Mode of arrival: ambulatory Limitations: no limitations History of Present Illness HPI Narrative: Patient presents today with a 3 day history of sore throat, bilateral ear clogging and pain, rhinorrhea, upper teeth pain, body aches. Denies fever, shortness of breath, known sick contacts. He has been taking Claritin and Advil without relief. Related Data Home Medications ?Medication ?Instructions ?Recorded ?Confirmed ?Last Taken ?Type hydrochlorothiazide 12.5 mg capsule 12.5 mg PO DAILY 02/12/24 02/12/24 Unknown History lisinopril 20 mg tablet 20 mg PO DAILY 02/12/24 04/04/24 Unknown History rosuvastatin 20 mg tablet 20 mg PO DAILY 02/12/24 02/12/24 Unknown History semaglutide 1 mg/dose (4 mg/3 mL) 1 mg subcut WEEKLY 02/12/24 02/12/24 Unknown H istory subcutaneous pen injector (Ozempic) sertraline 100 mg tablet 100 mg PO DAILY 02/12/24 04/04/24 Unknown History triamcinolone acetonide 0.1 % 1 applic topical DIRECTED 02/12/24 02/12/24 Unknown History topical cream Allergies Allergy/AdvReac Type Severity Reaction Status Date / Time No Known Allergies Allergy Verified 06/28/24 18:08 Review of Systems Review of Systems: CONSTITUTIONAL: Denies fever, chills, or sweats.+ body aches EYES: Denies visual changes, redness, or discharge. ENT: + rhinorrhea, sore throat, bilateral ear clogging and pain CARDIOVASCULAR: Denies chest pain, palpitations, or edema. RESPIRATORY: Denies cough or dyspnea. GASTROINTESTINAL: Denies abdominal pain, nausea, vomiting, or diarrhea. GENITOURINARY: Denies dysuria or hematuria. SKIN: Denies rash, itching, or wounds. MUSCULOSKELETAL: Denies back pain, joint pain, or myalgia. NEUROLOGIC: Denies headache, numbness, tingling, or weakness. PSYCH: Denies depression or anxiety. FOR[facility], LAT[facility] Past Medical History Medical History Depression Hyperlipidemia Hypertension Diabetes Surgical History Surgical History History of bilateral carpal tunnel release Social History Social History Smoking status: Never smoker Alcohol intake: current Alcohol use details: Occasional Substance use: never Living arrangements: with family Additional living arrangements comments: and 2 children Gender identity (if verbalized by the patient): Male Comments At time of signature, I have reviewed and agree with nursing past medical, surgical, social and family history unless otherwise noted. Please see nursing chart for further information. There is no relevant family history pertinent to the presenting complaint Exam Narrative: GENERAL: Mildly ill-appearing, well-nourished, and in no acute distress. HEAD: Normocephalic, atraumatic. EYES: EOMI. No redness or drainage. Conjunctivae normal. ENT: Mucous membranes pink and moist. Nares congested with rhinorrhea. TMs normal bilaterally. Throat mildly erythematous without edema or exudate. Uvula midline. NECK: Normal AROM. Supple. Bilaterally anterior cervical chain lymphadenopathy. CHEST: No respiratory distress. Clear to auscultation. HEART: Regular rate and rhythm. No murmur appreciated. EXTREMITIES: Normal range of motion. No edema. SKIN: Warm, dry, no rash. Capillary refill normal. Normal skin turgor. NEURO: No focal deficits. Alert and oriented x3. Gait steady. PSYCH: Normal affect. No signs of depression or anxiety. Course Course Level of Care: Express Care Visit Vital Signs Vital signs: Vital Signs Temperature 97.6 F 06/28/24 18:08 Pulse Rate 72 06/28/24 18:08 Respiratory Rate 16 06/28/24 18:08 Blood Pressure 146/84 H 06/28/24 18:08 Pulse Oximetry 100 06/28/24 18:08 Temperature 97.6 F 06/28/24 18:08 Pulse Rate 72 06/28/24 18:08 Respiratory Rate 16 06/28/24 18:08 Blood Pressure 146/84 H 06/28/24 18:08 Pulse Oximetry 100 06/28/24 18:08 Reviewed MDM - URI/Sore Throat MDM Narrative Medical decision making narrative: Patient declines testing for influenza and COVID. Rapid strep negative. Culture pending. Symptoms likely viral in etiology. Discussed [id number] medication use and duration of illness. No prescription medications indicated at this time. Anticipatory guidance given. Differential Diagnosis Differential diagnosis: Likely upper respiratory infection, otitis media, sinusitis, viral infection, influenza, pharyngitis and other (Strep throat, COVID) Lab Data Attestation: I reviewed the patient's lab results. Labs: Lab Results 06/28/24 Range/Units 18:36 POC Grp A Strep Screen Negative (Negative) Critical Care Time Critical Care Time Critical Care Time: No Discharge Plan Discharge Clinical Impression: Upper respiratory infection Qualifiers: URI type: unspecified URI Qualified Code(s): J06.9 - Acute upper respiratory infection, unspecified Patient Disposition: Home, Self-Care Condition: Stable Instructions: Upper Respiratory Infection (DC) Additional Instructions: Your rapid strep swab was negative today at [facility]. You will be notified in a few days if the culture comes back positive for strep, and appropriate antibiotics will be called in for you at that time. Your symptoms are likely due to a viral illness, which is not treated with antibiotics. Viral symptoms c an be present for up to 7-10 days. Take Tylenol or ibuprofen for fever or pain. Consider Coricidin, Flonase for your nasal congestion and sinus pressure. Rest and stay hydrated. Follow up with your PCP in 7 days if symptoms are not improving. Go to the ER immediately if you have any difficulty breathing or swallowing. Your blood pressure was elevated above 120/80 today at Urgent Care. This puts you above the threshold for follow up. Please schedule a followup visit with your personal physician as soon as possible, for further evaluation and treatment. Even blood pressure exceeding 120/80 may indicate pre-hypertension. Patient Language: Polish Prescriptions: No Action lisinopril 20 mg tablet 20 mg PO DAILY sertraline 100 mg tablet 100 mg PO DAILY triamcinolone acetonide 0.1 % cream 1 applic TOPICAL DIRECTED hydrochlorothiazide 12.5 mg capsule 12.5 mg PO DAILY rosuvastatin 20 mg tablet 20 mg PO DAILY Ozempic 1 mg/dose (4 mg/3 mL) pen injector 1 mg SUBCUT WEEKLY Follow-up/Referrals: Noris,Manuel [Other] Time of Disposition: 18:43
== END 2024-06-28 18:48 | disposition home or self-care (01) ==
PROVIDERS: Emergency Provider Nurse Practitioner
DX: J06.9 Acute upper respiratory infection, unspecified (principal); I10 Essential (primary) hypertension; E11.9 Type 2 diabetes mellitus without complications; Z79.85 Long-term (current) use of injectable non-insulin antidiabetic drugs; E78.5 Hyperlipidemia, unspecified; F32.A Depression, unspecified
CPT/HCPCS: 87081; 87880; 99213; G0463

== ENCOUNTER 2024-07-29 11:58 | Emergency (ER) | payer BC, SELFPAY ==
[2024-07-29 12:05] VITALS: BP 131/78; PULSE 65; RESP 16; TEMP 36.3; O2SAT 100
--- NOTE | 2024-07-29 12:10 | ED.SKABFB ---
HPI - Skin/Abscess/Foreign Bdy General Chief complaint: Skin/Abscess/Foreign Body Stated complaint: Rash Time Seen by Provider: 07/29/24 12:10 Source: patient Mode of arrival: ambulatory Limitations: no limitations History of Present Illness HPI narrative: 63 y/o male with hx DM presented for c/o rash to the right loera. Onset3 days. Says after scratching the area he noted clear drainage to his sock, and more redness to the rash. Has applied ROLAN. Denies pain. Reports concern for cellulitis due to hx DM. Related Data Home Medications ?Medication ?Instructions ?Recorded ?Confirmed ?Last Taken ?Type hydrochlorothiazide 12.5 mg capsule 12.5 mg PO DAILY 02/12/24 02/12/24 Unknown History lisinopril 20 mg tablet 20 mg PO DAILY 02/12/24 04/04/24 Unknown History rosuvastatin 20 mg tablet 20 mg PO DAILY 02/12/24 02/12/24 Unknown History semaglutide 1 mg/dose (4 mg/3 mL) 1 mg subcut WEEKLY 02/12/24 02/12/24 Unknown History subcutaneous pen injector (Ozempic) sertraline 100 mg tablet 100 mg PO DAILY 02/12/24 04/04/24 Unknown History triamcinolone acetonide 0.1 % 1 applic topical DIRECTED 02/12/24 02/12/24 Unknown History topical cream Allergies Allergy/AdvReac Type Severity Reaction Status Date / Time No Known Allergies Allergy Verified 07/29/24 12:02 Review of Systems Review of Systems: CONSTITUTIONAL: Denies body aches, fever, chills, or sweats. CARDIOVASCULAR: Denies chest pain, palpitations, or edema. RESPIRATORY: Denies cough or dyspnea. GASTROINTESTINAL: Denies abdominal pain, nausea, vomiting, or diarrhea. SKIN: per HPI MUSCULOSKELETAL: Denies back pain, joint pain, or myalgia. NEUROLOGIC: Denies headache PMFSH Past Medical History Medical History Depression Hyperlipidemia Hypertension Diabetes Surgical History Surgical History History of bilateral carpal tunnel release Social History Social History Smoking status: Never smoker Alcohol intake: current Alcohol use details: Occasional Substance use: never Living arrangements: with family Additional living arrangements comments: and 2 children Gender identity (if verbalized by the patient): Male Comments At time of signature, I have reviewed and agree with nursing past medical, surgical, social and family history unless otherwise noted. Please see nursing chart for further information. There is no relevant family history pertinent to the presenting complaint Exam Narrative: GENERAL: Well-appearing ENT: Mucous membranes moist. Oropharynx without edema, erythema or lesions. NECK: Supple. CHEST: Clear to auscultation. HEART: Regular rate and rhythm. SKIN: Warm, dry. Right lower anterior leg with 3x8cm slightly raised papular lesions on erythematous base, tender slightly warm. No fluctuance or drainage. NEURO: Alert and oriented x3. Course Course Emergency Course: Patient is aware of diagnosis, understands and agrees to treatment plan. Anticipatory guidance given. Patient agrees to follow-up as directed and is aware of reasons to seek care at the emergency department. Portions of this record may have been created with voice recognition software Level of Care: Express Care Visit Vital Signs Vital signs: Vital Signs Temperature 97.3 F L 07/29/24 12:05 Pulse Rate 65 07/29/24 12:05 Respiratory Rate 16 07/29/24 12:05 Blood Pressure 131/78 07/29/24 12:05 Pulse Oximetry 100 07/29/24 12:05 Temperature 97.3 F L 07/29/24 12:05 Pulse Rate 65 07/29/24 12:05 Respiratory Rate 16 07/29/24 12:05 Blood Pressure 131/78 07/29/24 12:05 Pulse Oximetry 100 07/29/24 12:05 Reviewed MDM - Skin/Abscess/Foreign Bdy MDM Narrative Medical decision making narrative: Discussed physical exam findings; RLE dermatitis will send abx. Advised supportive measures and signs/symptoms to go to the ER. Pt is appropriate for outpt treatment and f/u. Differential Diagnosis Differential diagnosis: Likely abscess of skin or subcutaneous tissue, viral exanthem, dermatophytosis, urticaria, herpes zoster, cellulitis, eczema, insect bites, impetigo and contact dermatitis Discharge Plan Discharge Clinical Impression: Dermatitis Patient Disposition: Home Condition: Stable Instructions: Antibiotic Form, Dermatitis (ED) Additional Instructions: Wash the area with gentle soap and water Ok to apply Neosporin Avoid scratching when possible to prevent worsening of the condition and disruption of the skin that could lead to bacterial infection To relieve itching, place a cool washcloth or some ice over the area that itches, rather than scratching Benadryl or Zyrtec for itching Take the antibiotic as directed Follow up with primary care provider Go to the ER for worsening symptoms or concerns Patient Language: Kiswahili Prescriptions: New cephalexin 500 mg capsule 500 mg PO Q8H 5 Days Qty: 15 0RF No Action lisinopril 20 mg tablet 20 mg PO DAILY sertraline 100 mg tablet 100 mg PO DAILY triamcinolone acetonide 0.1 % cream 1 applic TOPICAL DIRECTED hydrochlorothiazide 12.5 mg capsule 12.5 mg PO DAILY rosuvastatin 20 mg tablet 20 mg PO DAILY Ozempic 1 mg/dose (4 mg/3 mL) pen injector 1 mg SUBCUT WEEKLY Follow-up/Referrals: PHYSICIAN,[employer] [Primary Care Provider] -
== END 2024-07-29 12:24 | disposition home or self-care (01) ==
PROVIDERS: Emergency Provider Nurse Practitioner Family
DX: L30.9 Dermatitis, unspecified (principal); I10 Essential (primary) hypertension; E11.9 Type 2 diabetes mellitus without complications; E78.5 Hyperlipidemia, unspecified; F32.A Depression, unspecified
CPT/HCPCS: 99213; G0463